=== PATIENT | female | born 1985 | race Caucasian/White ===

== ENCOUNTER → 2020-12-18 | Outpatient (CLI) | payer BC, OTHER ==
[~2020-12-18] MED LIST: IMITREX100 MG PO; NAPROXEN500 MG PO; PAROXETINE HCL40 MG PO; TOPAMAX 100 MG100 MG PO
== END ==
LOC: KOH-I 13:09
DX: R22.1 Localized swelling, mass and lump, neck (principal)
CPT/HCPCS: 76536

== ENCOUNTER → 2020-12-18 | Outpatient (CLI) | payer BC, OTHER ==
[2020-12-18 12:41] LABS: HEMOGLOBIN 13.9 gm/dl (12.3-15.3); RED BLOOD COUNT 5.07 M/UL (4.00-5.10); WHITE BLOOD COUNT 7.1 K/UL (4.5-11.0)
[2020-12-18 13:07] LABS: BUN/CREATININE RATIO 15 (0-10)
== END ==
LOC: LAB 11:55
PROVIDERS: Nurse Practitioner
DX: R22.1 Localized swelling, mass and lump, neck (principal); R13.10 Dysphagia, unspecified
CPT/HCPCS: 36415; 76536; 80053; 84439; 84443; 84481; 85025

== ENCOUNTER → 2021-01-03 | Outpatient (CLI) | payer BC, OTHER | LOC: CT 12:35 | DX: R22.1 Localized swelling, mass and lump, neck (principal); R59.0 Localized enlarged lymph nodes; R13.10 Dysphagia, unspecified | CPT/HCPCS: 70491; 71260; Q9963; Q9967 ==

== ENCOUNTER → 2021-01-11 | Outpatient (CLI) | payer BC, OTHER ==
[2021-01-12 16:09] LABS: EBV AB VCA, IGG >600.0 U/mL (0.0-17.9); EBV AB VCA, IGM <36.0 U/mL (0.0-35.9); EBV NUCLEAR ANTIGEN AB, IGG >600.0 U/mL (0.0-17.9)
== END ==
LOC: LAB 09:05
PROVIDERS: Nurse Practitioner
DX: R59.0 Localized enlarged lymph nodes (principal); R53.83 Other fatigue
CPT/HCPCS: 36415